=== PATIENT | male | born 1965 | race African-American/Black ===

== ENCOUNTER 2021-06-18 06:05 | Emergency (ER) | payer SELFPAY | END 2021-06-18 07:24 | disposition home or self-care (01) | LOC: JD.ED 06:05 | DX: S46.912A Strain of unspecified muscle, fascia and tendon at shoulder and upper arm level, left arm, initial encounter (principal); S16.1XXA Strain of muscle, fascia and tendon at neck level, initial encounter; Z72.0 Tobacco use; W00.0XXA Fall on same level due to ice and snow, initial encounter | CPT/HCPCS: 72040; 72040-26; 73030-26-LT; 73030-LT; 99283-25 ==

== ENCOUNTER 2021-06-28 15:12 | Emergency (ER) | payer SELFPAY | END 2021-06-28 16:43 | disposition home or self-care (01) | LOC: JD.ED 15:12 | DX: M25.512 Pain in left shoulder (principal); R53.1 Weakness; Z72.0 Tobacco use | CPT/HCPCS: 99283 ==